=== PATIENT | male | born 1975 ===

== ENCOUNTER 2020-11-30 08:00 | Day surgery (SDC) | payer OTHER ==
[~2020-11-30 08:00] MED LIST: COZAAR25 MG PO; LIPITOR40 MG PO; METFORMIN HCL500 M3 PO
== END 2020-11-30 17:40 | disposition home or self-care (01) ==
LOC: CIR.AMB 08:00
PROVIDERS: ATTEND Urology
DX: N20.1 Calculus of ureter (principal); Z20.822 Contact with and (suspected) exposure to COVID-19